=== PATIENT | female | born 1985 | race Caucasian/White ===

== ENCOUNTER 2016-08-02 12:55 | Emergency (ER) | payer OTHER ==
[2016-08-02 13:46] VITALS: BP 117/62
--- NOTE | 2016-08-02 14:08 | UC ---
Upper Extremity HPI - HPI Summary HPI Summary: 30 year old female with complaints of right shoulder pain. States she woke up 2 days ago with anterior right shoulder pain that radiates from shoulder to shoulder bland and tender into top part of her right breast. Denies fall or injury. Limited ROM of right arm due to acute pain. She is taking ibuprofen with minimal relief. Right hand dominant Denies chest pain or difficulty breathing - History of Current Complaint Chief Complaint: UCUpperExtremity Stated Complaint: RIGHT SHOULDER INJURY Time Seen by Provider: 08/02/16 13:49 Hx Obtained From: Patient Hx Last Menstrual Period: 07/27/16 ?: No Onset/Duration: Sudden Onset, Lasting Days - 2, Still Present Severity Initially: Moderate Severity Currently: Moderate Pain Scale Used: 0-10 Numeric - 7 Character: Aching, Throbbing Aggravating Factor(s): Movement, Abduction Alleviating Factor(s): Nothing Associated Signs And Symptoms: Positive: Numbness/Tingling - in certain positions and relieved by change of position. Negative: Swelling, Redness, Bruising, Fever, Weakness Related History: Dominant Hand Right - Risk Factors DVT Risk Factors: Negative Septic Arthritis Risk Factor: Negative Compartment Syndrome Risk Factors: Pain - Allergies/Home Medications Allergies/Adverse Reactions: Allergies Allergy/AdvReac Type Severity Reaction Status Date / Time Tramadol Allergy Tachycardia Verified 08/02/16 13:41 ear drop abx Allergy Flushing Uncoded 08/02/16 13:41 PMH/Surg Hx/FS Hx/Imm Hx Previously Healthy: Yes Endocrine History Of: Denies: Diabetes, Thyroid Disease, Hyperthyroidism, Hypothyroidism, Dyslipidemia Cardiovascular History Of: Denies: Cardiac Disorders, Hypertension, Pacemaker/ICD, Myocardial Infarction , Congestive Heart Failure, Atrial Fibrillation, Deep Vein Thrombosis, Bleeding Disorders Respiratory History Of: Denies: COPD, Asthma, Bronchitis, Pneumonia, Pulmonary Embolism GI/ History Of: Denies: Gastroesophageal Reflux, Ulcer, Gastrointestinal Bleed, Gall Bladder Disease, Kidney Stones, Diverticulitis, Renal Disease, Urosepsis Neurological History Of: Denies: TIA, CVA, Dementia, Seizures, Migraine Psychological History Of: Denies: Anxiety, Depression, Bipolar Disorder, Schizophrenia, Post Traumatic Stress Disorder Cancer History Of: Denies: Lung Cancer, Colorectal Cancer, Breast Cancer, Prostate Cancer, Cervical Cancer Other History Of: Negative For: HIV, Hepatitis B, Hepatitis C - Surgical History Surgical History: Yes Surgery Procedure, Year, and Place: Tubal Ligation, 2007, [facility]. C-Sections, 2007 2013, [facility]. Cholecystectomy, 2007, [facility]. T&A, 2004, [facility]. 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 [employer] Lives: Alone Alcohol Use: Rare Substance Use Type: None Smoking Status (MU): Heavy Every Day Tobacco Smoker Type: Cigarettes Amount Used/How Often: 10 CIGS PER WEEK Length of Time of Smoking/Using Tobacco: 7 Years Have You Smoked in the Last Year: Yes When Did the Patient Quit Smoking/Using Tobacco: 12/27/14 Cessation Counseling: Patient Advised to Stop - she is not interested in quiting - Immunization History Most Recent Influenza Vaccination: 2012 Review of Systems Constitutional: Negative Skin: Negative Eyes: Negative ENT: Negative Respiratory: Negative Cardiovascular: Negative Gastrointestinal: Negative Genitourinary: Negative Motor: Decreased ROM - right arm due to acute pain Musculoskeletal: Arthralgia - right shoulder Neurological: Negative Psychological: Negative All Other Systems Reviewed And Are Negative: Yes Physical Exam Triage Information Reviewed: Yes Appearance: Well-Appearing, Pain Distress - holding right arm close to her side , Obese Vital Signs: Initial Vital Signs Temp 97.6 F 08/02/16 13:42 Pulse 78 08/02/16 13:42 Resp 18 08/02/16 13:42 BP 117/62 08/02/16 13:42 Pulse Ox 100 08/02/16 13:42 Vital Signs Reviewed: Yes Eyes: Positive: Conjunctiva Clear. Negative: Discharge ENT: Positive: Hearing grossly normal. Negative: Nasal congestion Neck: Positive: Supple, Nontender - no midline cervical tenderness, No Lymphadenopathy Respiratory: Positive: Lungs clear, Normal breath sounds Cardiovascular: Positive: RRR, No Murmur Musculoskeletal: Positive: Strength Intact - equal hand sheriff sergeant 5/5, No Edema, ROM Limited @ - right shoulder at 90 degrees abduction due to acute pain. There is no redness, swelling, bruising, or deformity appreciated of the right shoulder. Full passive ROM. Capillary refill less than 2 seconds of right fingers. Good sensation to light touch throughout right arm and hand. Tenderness with palpation and muscle spasm at posterior right shoulder. Pt withdrawaling from exam so it was limited Neurological: Positive: Alert, Muscle Tone Normal Psychological: Positive: Age Appropriate Behavior - pleasant and cooperative Skin: Negative: rashes, breakdown Upper Extremity Course/Dx - Differential Dx/Diagnosis Differential Diagnosis/HQI/PQRI: Contusion, Strain Provider Diagnoses: Right shoulder strain. possible thoracic outlet syndrome Discharge - Discharge Plan Condition: Stable Disposition: HOME Prescriptions: Ibuprofen TAB* [Motrin TAB* 800 MG] 800 mg PO Q6H PRN #20 tab PRN Reason: Pain Patient Education Materials: Shoulder Pain (ED), Thoracic Outlet Syndrome (ED) Referrals: No Primary Care Phys,NOPCP [Primary Care Provider] - [facility] [Outside] (For help obtaining a primary care physician) Amado Peter MD [Medical Doctor] - 5 Days (For evaluation of right shoulder pain)
[2016-08-02] MEDS ORDERED: Ketorolac INJ* 30 MG/ML 1 ML VIAL IM ONE (14:13)
== END 2016-08-02 14:51 | disposition home or self-care (01) ==
LOC: UCCORT 12:55
DX: S46.911A Strain of unspecified muscle, fascia and tendon at shoulder and upper arm level, right arm, initial encounter (principal); X58.XXXA Exposure to other specified factors, initial encounter; Y93.9 Activity, unspecified; Y92.9 Unspecified place or not applicable; Z88.6 Allergy status to analgesic agent; F17.210 Nicotine dependence, cigarettes, 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
CPT/HCPCS: 96372; 99212; G0463; J1885

== ENCOUNTER 2018-08-07 15:38 | Emergency (ER) | payer OTHER ==
--- OUTSIDE RECORDS SUMMARY | 2018-08-07 16:17 | XMS REPORT | Continuity of Care Document ---
:1985 External Reference #:[id number] Author Name Erick Sorto M.D. Address [address] [facility] [address] [place] [address] Care Team Providers Name Role Phone Beni Mata JP Care Team Information Increment Manager Unavailable Payers Type Date Identification Numbers Payment Provider Subscriber Effective: 2017 Policy Number: [id number] [facility] Chanell Wright PayID: [id number] [place] [address] Policy Number: [id number] [employer] Chanell Wright PayID: [id number] [address] [place] [address] Expires: 2017 Policy Number: [id number] [facility] Chanell Wright PayID: [id number] [address] [place] [address] Advance Directives Description No Information Available Problems Date Description Provider Status Onset: 08/13/2016 Morbid obesity Beni MataP Active Onset: 08/13/2016 Tobacco user Beni MataP Active Onset: 08/13/2016 Degeneration of lumbar intervertebral disc Beni MataP Active Onset: 08/13/2016 Refractory migraine with aura Beni MataP Active Family History Date Family Member(s) Problem(s) Comments General Hypercholesterolemia General Heart Disease Father 50 Father No Current Problems Mother 46 Mother No Current Problems Children 2 First Son 2 First Son No Current Problems First Daughter 9 First Daughter No Current Problems Siblings 5 Social History Type Date Description Comments Sex Unknown Marital Status Significant Other 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 F34.1 G25.81 Prozac 07/17/2017 Active Capsules 20mg 90caps 1 by mouth F41.9 Macario, every day Ahmad M., M.D. 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 Betamethasone 04/02/2017 Active Cream 0.05% 45gm apply to L20.9 Macario, Dipropionate affected Ahmad M., area three M.D. times a day as needed Omeprazole 01/15/[address] 40mg 90caps 1 by mouth K30 Macario, every day Ahmad M., M.D. Morphine Sulfate 11/07/2016 Active Tablets ER 30mg 60tabs 1 tab by M54.6 Macario, ER mouth twice Ahmad M., a day M.D. M79.606 M51.37 Oxycodone-Acetaminophen 08/20/2016 Active Tablets 7.5-325mg 60tabs 1 tab M54.6 Macario, by Ahmad mouth M., twice a M.D. day as needed M79.606 M51.37 Ibuprofen 08/20/2016 Active Tablets 800mg 90tabs 1 by mouth M79.606 Macario, Ahmad three times a M., M.D. day with food M54.6 M51.37 Topiramate 08/20/2016 Active Tablets 50mg 60tabs tab one by G43.119 Macario, mouth Ahmad M., twice a M.D. day Trazodone HCL 05/25/2018 - Hx Tablets 300mg 30tabs 1 tab by G47.00 Macario, 05/25/2018 mouth Ahmad M., every M.D. night F34.1 G25.81 Keflex 10/02/2017 - Hx Capsules 500mg 30caps 1 by mouth Macario, 10/11/2017 three times a Ahmad M., day M.D. Trazodone HCL 07/03/2017 - Hx Tablets 100mg 60tabs take 2 G47.00 Macario, 05/25/2018 tablets by Ahmad M., mouth every M.D. evening F34.1 G25.81 Trazodone HCL 06/18/2017 - Hx Tablets 100mg 60tabs 2 tab by G47.00 [facility], Ahmad 07/03/2017 mouth every M., M.D. night F34.1 G25.81 Trazodone HCL 05/21/2017 - Hx Tablets 100mg 30tabs /2-1 tab G47.00 [facility], mad 06/18/2017 by mouth M., M.D. every night F34.1 G25.81 Cephalexin 02/03/2017 - Hx Tablets 500mg 30tabs tab one by B35.1 [facility], 03/06/2017 mouth Ahmad three M., M.D. times a day Pramipexole 02/03/2017 - Hx Tablets 0.125mg 30tabs tab one by G47.00 [facility], Dihydrochloride 05/21/2017 mouth Ahmad every at M., M.D. bedtime Wellbutrin XL 01/15/2017 - Hx Tablets ER 150mg 30tabs 1 by mouth F17.210 [facility], 05/06/2017 24HR every day Ahmad Joyce Condon. Clindamycin HCL 01/07/2017 - Hx Capsules 300mg 20caps tab one by W54.0xx [facility], 01/17/2017 mouth A Ahmad twice a M., M.D. day Chantix 01/01/2017 - Hx Tablets 1mg 60tabs 1 by mouth F17.210 Macario, 01/15/2017 twice a Ahmad day M., M.D. Morphine Sulfate 11/06/2016 - Hx Caps ER 60mg 60caps 1 tab by M54.6 Macario, ER 11/07/2016 24HR mouth Ahmad twice a M., M.D. day M79.606 M51.37 Omeprazole 10/22/2016 - Hx Capsules DR 40mg 90caps 1 by mouth K21.0 Macario, Ahmozayda 01/15/2017 every day Kate Condon K30 Prednisone 10/01/2016 - Hx Tablets 20mg 18tabs 3 tab by M54.6 Iram Sortomozayda 10/13/2016 mouth daily 3 Jarett.Kate days, then 2 tab daily x 3 d , then 1 tab daily 3d M51.37 Meloxicam 08/11/2016 - Hx Tablets 7.5mg 60tabs 1 by mouth M51.36 Macario , [facility] 08/20/2016 twice a day Kate Condon Immunizations CPT Code Status Date Vaccine Lot # [id number] Given 03/29/2018 Flu Vaccine [id number] U-Flu Given 03/20/2017 Influenza,Unspecified Vital Signs Date Vital Result Comment 07/22/2018 9:05am BP Systolic 128 mmHg BP Diastolic 90 mmHg Height 67 inches 5'7" Weight 254.00 lb BMI (Body Mass Index) 39.8 kg/m2 Heart Rate 124 /min Respiratory Rate 16 /min 06/24/2018 11:15am BP Systolic 118 mmHg BP Diastolic 78 mmHg Height 67 inches 5'7" Weight 272.00 lb BMI (Body Mass Index) 42.6 kg/m2 Heart Rate 99 /min Respiratory Rate 18 /min 05/25/2018 10:20am BP Systolic 130 mmHg BP Diastolic 78 mmHg Height 67 inches 5'7" Weight 267.00 lb BMI (Body Mass Index) 41.8 kg/m2 Heart Rate 96 /min Respiratory Rate 16 /min 04/27/2018 10:04am BP Systolic 128 mmHg BP Diastolic 72 mmHg Height 67 inches 5'7" Weight 271.00 lb BMI (Body Mass Index) 42.4 kg/m2 Heart Rate 119 /min Respiratory Rate 16 /min 03/29/2018 10:16am BP Systolic 136 mmHg BP Diastolic 64 mmHg Height 67 inches 5'7" Weight 270.00 lb BMI (Body Mass Index) 42.3 kg/m2 Heart Rate 82 /min Respiratory Rate 16 /min 02/26/2018 3:37pm BP Systolic 130 mmHg BP Diastolic 68 mmHg Height 67 inches 5'7" Weight 272.00 lb BMI (Body Mass Index) 42.6 kg/m2 Heart Rate 113 /min Respiratory Rate 16 /min 01/26/2018 2:16pm BP Systolic 126 mmHg BP Diastolic 70 mmHg Height 67 inches 5'7" Weight 266.00 lb BMI (Body Mass Index) 41.7 kg/m2 Heart Rate 98 /min Respiratory Rate 14 /min 12/28/2017 10:17am BP Systolic 128 mmHg BP Diastolic 84 mmHg Height 67 inches 5'7" Weight 281.00 lb BMI (Body Mass Index) 44.0 kg/m2 Heart Rate 101 /min Respiratory Rate 16 /min 11/27/2017 9:49am BP Systolic 124 mmHg BP Diastolic 68 mmHg Height 67 inches 5'7" Weight 276.00 lb BMI (Body Mass Index) 43.2 kg/m2 Heart Rate 64 /min Respiratory Rate 18 /min 10/30/2017 9:54am BP Systolic 132 mmHg BP Diastolic 64 mmHg Height 67 inches 5'7" Weight 281.00 lb BMI (Body Mass Index) 44.0 kg/m2 Heart Rate 96 /min Respiratory Rate 18 /min 09/29/2017 2:57pm BP Systolic 118 mmHg BP Diastolic 78 mmHg Height 67 inches 5'7" Weight 280.00 lb BMI (Body Mass Index) 43.8 kg/m2 Heart Rate 103 /min Respiratory Rate 18 /min 09/15/2017 2:26pm BP Systolic 142 mmHg BP Diastolic 82 mmHg Height 67 inches 5'7" Weight 284.00 lb BMI (Body Mass Index) 44.5 kg/m2 Heart Rate 105 /min Respiratory Rate 18 /min 08/31/2017 9:43am BP Systolic 128 mmHg BP Diastolic 78 mmHg Height 67 inches 5'7" Weight 276.00 lb BMI (Body Mass Index) 43.2 kg/m2 Heart Rate 107 /min Respiratory Rate 18 /min 08/14/2017 2:44pm BP Systolic 140 mmHg BP Diastolic 70 mmHg Height 67 inches 5'7" Weight 274.00 lb BMI (Body Mass Index) 42.9 kg/m2 Heart Rate 90 /min Respiratory Rate 18 /min 07/31/2017 1:26pm BP Systolic 140 mmHg BP Diastolic 72 mmHg Height 67 inches 5'7" Weight 284.00 lb BMI (Body Mass Index) 44.5 kg/m2 Heart Rate 81 /min Respiratory Rate 18 /min 07/17/2017 3:41pm BP Systolic 126 mmHg BP Diastolic 78 mmHg Height 67 inches 5'7" Weight 283.00 lb BMI (Body Mass Index) 44.3 kg/m2 Heart Rate 108 /min Respiratory Rate 18 /min 07/03/2017 9:12am BP Systolic 126 mmHg BP Diastolic 72 mmHg Height 67 inches 5'7" Weight 279.00 lb BMI (Body Mass Index) 43.7 kg/m2 Heart Rate 85 /min Respiratory Rate 18 /min 06/18/2017 9:29am BP Systolic 128 mmHg BP Diastolic 70 mmHg Height 67 inches 5'7" Weight 286.00 lb BMI (Body Mass Index) 44.8 kg/m2 Heart Rate 112 /min Respiratory Rate 18 /min 06/04/2017 3:37pm BP Systolic 126 mmHg BP Diastolic 68 mmHg Height 67 inches 5'7" Weight 280.00 lb BMI (Body Mass Index) 43.8 kg/m2 Heart Rate 93 /min Respiratory Rate 18 /min 05/21/2017 9:46am BP Systolic 130 mmHg BP Diastolic 72 mmHg Height 67 inches 5'7" Weight 282.00 lb BMI (Body Mass Index) 44.2 kg/m2 Heart Rate 102 /min Respiratory Rate 18 /min 05/05/2017 10:10am BP Systolic 126 mmHg BP Diastolic 72 mmHg Height 67 inches 5'7" Weight 272.00 lb BMI (Body Mass Index) 42.6 kg/m2 Heart Rate 119 /min Respiratory Rate 18 /min 04/21/2017 9:16am BP Systolic 126 mmHg BP Diastolic 62 mmHg Height 67 inches 5'7" Weight 276.00 lb BMI (Body Mass Index) 43.2 kg/m2 Heart Rate 81 /min Respiratory Rate 16 /min 04/02/2017 9:47am BP Systolic 130 mmHg BP Diastolic 78 mmHg Height 67 inches 5'7" Weight 283.00 lb BMI (Body Mass Index) 44.3 kg/m2 Heart Rate 78 /min Respiratory Rate 16 /min 03/20/2017 9:29am BP Systolic 118 mmHg BP Diastolic 70 mmHg Height 67 inches 5'7" Weight 279.00 lb BMI (Body Mass Index) 43.7 kg/m2 Heart Rate 87 /min Respiratory Rate 18 /min 03/06/2017 10:23am BP Systolic 132 mmHg BP Diastolic 78 mmHg Height 67 inches 5'7" Weight 278.00 lb BMI (Body Mass Index) 43.5 kg/m2 Heart Rate 86 /min Respiratory Rate 18 /min 02/19/2017 2:19pm BP Systolic 138 mmHg BP Diastolic 68 mmHg Height 67 inches 5'7" Weight 282.00 lb BMI (Body Mass Index) 44.2 kg/m2 Heart Rate 100 /min Respiratory Rate 16 /min 02/03/2017 11:04am BP Systolic 138 mmHg BP Diastolic 74 mmHg Height 67 inches 5'7" Weight 280.00 lb BMI (Body Mass Index) 43.8 kg/m2 Heart Rate 86 /min Respiratory Rate 16 /min 01/22/2017 2:20pm BP Systolic 138 mmHg BP Diastolic 78 mmHg Height 67 inches 5'7" Weight 282.00 lb BMI (Body Mass Index) 44.2 kg/m2 Heart Rate 98 /min Respiratory Rate 16 /min 01/15/2017 10:27am BP Systolic 130 mmHg BP Diastolic 68 mmHg Height 67 inches 5'7" Weight 271.00 lb BMI (Body Mass Index) 42.4 kg/m2 Heart Rate 87 /min Respiratory Rate 16 /min 01/01/2017 3:11pm BP Systolic 128 mmHg BP Diastolic 70 mmHg Height 67 inches 5'7" Weight 271.00 lb BMI (Body Mass Index) 42.4 kg/m2 Heart Rate 99 /min Respiratory Rate 16 /min 12/05/2016 4:13pm BP Systolic 146 mmHg BP Diastolic 78 mmHg Height 67 inches 5'7" Weight 272.00 lb BMI (Body Mass Index) 42.6 kg/m2 Heart Rate 108 /min Respiratory Rate 16 /min 11/06/2016 3:28pm BP Systolic 138 mmHg BP Diastolic 78 mmHg Height 67 inches 5'7" Weight 280.00 lb BMI (Body Mass Index) 43.8 kg/m2 Heart Rate 102 /min Respiratory Rate 16 /min 10/22/2016 9:22am BP Systolic 132 mmHg BP Diastolic 80 mmHg Height 67 inches 5'7" Weight 278.00 lb BMI (Body Mass Index) 43.5 kg/m2 Heart Rate 77 /min Respiratory Rate 16 /min 10/01/2016 9:09am BP Systolic 126 mmHg BP Diastolic 78 mmHg Height 67 inches 5'7" Weight 289.00 lb BMI (Body Mass Index) 45.3 kg/m2 Heart Rate 104 /min Respiratory Rate 18 /min 09/22/2016 9:25am BP Systolic 128 mmHg BP Diastolic 72 mmHg Height 67 inches 5'7" Weight 287.00 lb BMI (Body Mass Index) 44.9 kg/m2 Heart Rate 88 /min Respiratory Rate 18 /min 08/20/2016 10:58am BP Systolic 128 mmHg BP Diastolic 82 mmHg Height 67 inches 5'7" Weight 297.00 lb BMI (Body Mass Index) 46.5 kg/m2 Heart Rate 119 /min Respiratory Rate 18 /min 08/11/2016 3:35pm BP Systolic 158 mmHg BP Diastolic 88 mmHg Height 67 inches 5'7" Weight 290.00 lb BMI (Body Mass Index) 45.4 kg/m2 Heart Rate 102 /min Respiratory Rate 18 /min Results Test Date Facility Test Result H/L Range Note Ua RFX Micro & Culture II 07/09/2018 [facility] Urine Color YELLOW Yellow 1 Urine Clarity SL CLOUDY Clear Urine Glucose - Dipstick NEGATIVE mg/dL Negative Urine Bilirubin - Dipstick NEGATIVE Negative Urine Ketone NEGATIVE mg/dL Negative Urine Specific [place] 1.020 N 1.010-1.030 Urine Blood NEGATIVE Negative Urine PH 6.0 Low 6.5-7.5 Urine Protein - Dipstick NEGATIVE mg/dL Negative Urine Urobilinogen - Dipstick 0.2 E.U./dL N 0.2-1.0 Urine Nitrite - Dipstick NEGATIVE Negative Urine Leuk Esterase NEGATIVE Negative Source: URINE, CLEAN CAT <SEE NOTE> 2 Drugs Of Abuse-Urine Screen 07/09/2018 [facility] Amphetamines (Urine) Negative 7 Barbiturates (Urine) Negative Benzodiazepines (Urine) Negative Cannabinoids (Urine) Negative Cocaine Metabolite (Urine) Negative Methadone (Urine) Negative Opiates (Urine) POSITIVE Abnormal Urine Cutoffs * 3 Laboratory test 07/09/2018 [facility] Ethyl Alcohol 4.0 mg/dL finding CBC Auto Diff 05/19/2018 [facility] White Blood 10.1 10^3/uL N 3.5- 10.8 Count Red Blood Count 4.26 10^6/uL N 4.00-5.40 Hemoglobin 13.5 g/dL N 12.0-16.0 Hematocrit 41 % N 35-47 Mean Corpuscular Volume 96 fL N 80-97 Mean Corpuscular Hemoglobin 32 pg High 27-31 Mean Corpuscular HGB Conc 33 g/dL N 31-36 Red Cell Distribution Width 13 % N 10.5-15 Platelet Count 242 10^3/uL N 150-450 Mean Platelet Volume 8.9 fL N 7.4-10.4 Abs Neutrophils 6.4 10^3/uL N 1.5-7.7 Abs Lymphocytes 3.0 10^3/uL N 1.0-4.8 Abs Monocytes 0.5 10^3/uL N 0-0.8 Abs Eosinophils 0.2 10^3/uL N 0-0.6 Abs Basophils 0.1 10^3/uL N 0-0.2 Abs Nucleated RBC 0 10^3/uL Granulocyte % 63.3 % N 38-83 Lymphocyte % 29.6 % N 25-47 Monocyte % 4.6 % N 0-7 Eosinophil % 1.6 % N 0-6 Basophil % 0.9 % N 0-2 Nucleated Red Blood Cells % 0 Comp Metabolic Panel 05/19/2018 [facility] Sodium 139 mmol/L N 135- 145 Potassium 3.8 mmol/L N 3.5-5.0 Chloride 105 mmol/L N 101-111 Co2 Carbon Dioxide 28 mmol/L N 22-32 Anion Gap 6 mmol/L N 2-11 Glucose 102 mg/dL High 70-100 Blood Urea Nitrogen 11 mg/dL N 6-24 Creatinine 0.69 mg/dL N 0.51-0.95 BUN/Creatinine Ratio 15.9 N 8-20 Calcium 9.5 mg/dL N 8.6-10.3 Total Protein 7.1 g/dL N 6.4-8.9 Albumin 4.5 g/dL N 3.2-5.2 Globulin 2.6 g/dL N 2-4 Albumin/Globulin Ratio 1.7 N 1-3 Total Bilirubin 0.60 mg/dL N 0.2-1.0 Alkaline Phosphatase 63 U/L N 34-104 Alt 29 U/L N 7-52 Ast 22 U/L N 13-39 Egfr Non- 99.9 >60 Egfr 120.9 >60 4 Laboratory test 05/19/2018 [facility] Troponin-I (TnI) 0.00 ng/mL < 0.04 finding HCG < 0.60 mIU/mL 5 D Dimer Quantitative < 200 ng/mL N Less Than 230 6 Ethyl Glucuronide 01/26/2018 [facility] Ethyl Glucuronide Negative ng/mL N 500 PDF SEE IMAGE Laboratory test finding 01/26/2018 [facility] Tramadol Negative ng/mL N 5 7 Gabapentin Negative ng/mL N 100 8 Trazodone Negative Inconsi <SEE NOTE> ng/mL Abnormal 20 9 Topiramate Negative Inconsi <SEE NOTE> ng/mL Abnormal 100 10 Urine DRG SCR 01/26/2018 [facility] Amphetamine NEGATIVE N 1000 (12PNL-PM) Barbiturate NEGATIVE N 200 Benzodiazepine NEGATIVE N 200 Buprenorphine NEGATIVE N 15 Cannabinoid NEGATIVE N 50 Cocaine NEGATIVE N 300 Methadone NEGATIVE N 300 Opiate POSITIVE Abnormal 300 Oxycodone POSITIVE Abnormal 300 Phencyclidine NEGATIVE N 25 11 Cocaine Panel By 01/26/2018 [facility] Benzoylecgonine Negative ng/mL N 50 12 LC/MS/MS (Cocaine) Amphetamine Panel 01/26/2018 [facility] Amphetamine Negative ng/ mL N 50 By LC/MS/MS Methamphetamine Negative ng/mL N 50 Mdma (Ecstasy) Negative ng/mL N 50 Mda Negative ng/ml N 50 Mdea Negative ng/mL N 50 13 Specimen Validity 01/26/2018 [facility] Creatinine, Urine 44 mg/ dL N >20 Panel Color YELLOW N Yellow pH 6.2 N 5.0-8.0 Specific [place] 1.016 N 1.001-1.035 14 Opiates Panel By 01/26/2018 [facility] 6-Onur (Heroin Negative ng/ mL N 5 LC/MS/MS Metabolite) Codeine Negative ng/mL N 50 Hydrocodone Negative ng/mL N 50 Hydromorphone Negative Consist <SEE NOTE> ng/mL N 50 15 Morphine 168 Positive Con <SEE NOTE> ng/mL N 50 16 Norhydrocodone Negative ng/mL N 50 Noroxycodone 3528 Positive Co <SEE NOTE> ng/mL N 50 17 Noroxymorphone 488 Positive Con <SEE NOTE> ng/mL N 50 18 Oxycodone 3312 Positive Co <SEE NOTE> ng/mL N 50 19 Oxymorphone Positive >5000 C <SEE NOTE> ng/mL N 50 20 Methadone Panel By 01/26/2018 [facility] Eddp Negative ng/mL N 10 LC/MS/MS Methadone Negative ng/mL N 10 21 Buprenorphine Panel By 01/26/2018 [facility] Buprenorphine Negative ng/mL N 5 LC/MS/MS Naloxone Negative ng/mL N 10 Norbuprenorphine Negative ng/mL N 5 22 Benzodiazepines 01/26/2018 [facility] 2-Hydroxyethylflurazepam Negative N 10 Panel By LC/MS/MS ng/mL 7-Aminoclonazepam Negative ng/mL N 10 Alprazolam Negative ng/mL N 10 Chlordiazepoxide Negative ng/mL N 10 Clonazepam Negative ng/mL N 10 Desalkylflurazepam Negative ng/mL N 10 Diazepam Negative ng/mL N 10 Lorazepam Negative ng/mL N 10 Midazolam Negative ng/ml N 10 Nordiazepam Negative ng/mL N 10 Alpha-hydroxyalprazolam Negative ng/mL N 10 Alpha-Hydroxymidazolam Negative ng/mL N 10 Alpha-Hydroxytriazolam Negative ng/mL N 10 Oxazepam Negative ng/mL N 10 Prazepam Negative ng/mL N 10 Temazepam Negative ng/mL N 10 23 Barbiturates Panel By 01/26/2018 [facility] Butalbital Negative ng/mL N 100 LC/MS/MS Pentobarbital Negative ng/mL N 100 Phenobarbital Negative ng/mL N 100 Secobarbital Negative ng/mL N 100 24 Antidepressants Panel 01/26/2018 [facility] Amitriptyline Negative ng/mL N 20 By LC/MS/MS Clomipramine Negative ng/mL N 20 Desipramine Negative ng/mL N 20 Doxepin Negative ng/mL N 20 Fluoxetine Negative Inconsi <SEE NOTE> ng/mL Abnormal 20 25 Imipramine Negative ng/mL N 20 Norclomipramine Negative ng/mL N 20 Nordoxepin Negative ng/mL N 20 Nortriptyline Negative ng/mL N 20 Sertraline Negative ng/mL N 20 Trimipramine Negative ng/mL N 20 26 Urine Drug 01/26/2018 [facility] IBO-Pojgl-6-Cooh Negative N 5 27 [facility] ng/mL Laboratory 11/19/2017 [facility] HCG,Serum NEGATIVE (Negative 28, test finding (Qualitative) ) 29 Ua RFX Micro & 11/19/2017 [facility] Urine Color YELLOW Yellow Culture II Urine Clarity SL CLOUDY Clear Urine Glucose - Dipstick NEGATIVE mg/dL Negative Urine Bilirubin - Dipstick NEGATIVE Negative Urine Ketone NEGATIVE mg/dL Negative Urine Specific [place] <=1.005 Low 1.010-1.030 Urine Blood TRACE Negative Urine PH 5.5 Low 6.5-7.5 Urine Protein - Dipstick NEGATIVE mg/dL Negative Urine Urobilinogen - Dipstick 0.2 E.U./dL N 0.2-1.0 Urine Nitrite - Dipstick NEGATIVE Negative Urine Leuk Esterase NEGATIVE Negative Source: URINE, CLEAN CAT <SEE NOTE> 30 Blood Culture 09/08/2017 [facility] Blood Culture NO GROWTH: FINAL 31, 32 Aerobic <SEE NOTE> Blood Culture Anaerobic NO GROWTH: FINAL <SEE NOTE> 33 Slide Review 09/08/2017 [facility] Slide Review (SEE NOTE) 34 CBS W/Automated 09/08/2017 [facility] White Blood Count 17.3 K/uL High 3.1- 10.7 Diff Red Blood Count 4.21 M/uL N 3.90-5.40 Hemoglobin 13.6 gm/dL N 11.6-15.8 Hematocrit 40.0 % N 36.0-46.1 Mean Cell Volume 95.0 fl N 80.9-99.0 Mean Corpuscular HGB 32.3 pg N 25.9-32.7 Mean Corpuscular HGB Conc 34.0 g/dL N 30.8-34.3 Platelet Count 242 K/uL N 155-360 Red Cell Distri Width SD 42.6 fl N 3-47 Red Cell Distri Width %CV 12.7 % N 11.7-14.4 Mean Platelet Volume 11.1 fL N 8.9-12.4 Neut% 74.5 % High 40.4-72.8 Lymph % 19.4 % Low 20.0-42.0 [place] % 5.5 % N 4.3-13.2 Eo% 0.3 % N 0.0-6.6 Bas% 0.3 % N 0.0-1.1 Neut# 12.86 K/uL High 1.8-7.0 Lymph # 3.34 K/uL N 1.0-4.0 [place] # 0.95 K/uL High 0.3-0.9 Eos # 0.05 K/uL N 0.0-0.5 Baso # 0.05 K/uL N 0.0-0.1 Lactic Acid 09/08/2017 [facility] Lactic Acid 2.1 mmol/L High 0.4-1.9 Lab Reflex >2.0 for Sepsis? Y Laboratory test finding 09/08/2017 [facility] Lipase 112 U/L N 56-289 HCG,Serum (Qualitative) NEGATIVE (Negative) 35 Comprehensive Metabolic Panel 09/08/2017 [facility] Glucose 101 mg/dL N 74- 106 BUN 9 mg/dL N 7-18 Creatinine 0.7 mg/dL N 0.6-1.3 Glom Filtration Rate, Estimate >60 mL/min >60 If >60 mL/min >60 36 BUN/Creat 12.8 ratio Sodium 141 mmol/L N 136-145 Potassium 3.7 mmol/L N 3.5-5.1 Chloride 105 mmol/L N 98-107 Carbon Dioxide 27 mmol/L N 21-32 Anion Gap 9 mEq/L N 8-16 Calcium 9.4 mg/dL N 8.5-10.1 Total Protein 7.8 g/dL N 6.4-8.2 Albumin 4.1 g/dL N 3.4-5.0 Globulin 3.7 g/dL N 1.9-4.3 Alb/Glob 1.1 ratio Bilirubin,Total 0.5 mg/dL N 0.2-1.0 Sgot/Ast 44 U/L High 15-37 SGPT/Alt 58 U/L N 12-78 Alkaline Phosphatase 77 U/L N 45-117 Blood Culture 09/08/2017 [facility] Blood Culture Aerobic NO GROWTH: FINAL < SEE 37 NOTE> Blood Culture Anaerobic NO GROWTH: FINAL <SEE NOTE> 38 Ua RFX Micro & Culture II 09/08/2017 [facility] Urine Color YELLOW Yellow Urine Clarity CLEAR Clear Urine Glucose - Dipstick NEGATIVE mg/dL Negative Urine Bilirubin - Dipstick NEGATIVE Negative Urine Ketone NEGATIVE mg/dL Negative Urine Specific [place] 1.015 N 1.010-1.030 Urine Blood NEGATIVE Negative Urine PH 6.0 Low 6.5-7.5 Urine Protein - Dipstick NEGATIVE mg/dL Negative Urine Urobilinogen - Dipstick 0.2 E.U./dL N 0.2-1.0 Urine Nitrite - Dipstick NEGATIVE Negative Urine Leuk Esterase NEGATIVE Negative Source: URINE, CLEAN CAT <SEE NOTE> 39 Influenza A/B 09/08/2017 [facility] Influenza A Antigen Negative (Negative ) Antigen Influenza B Antigen Negative (Negative) 40 Laboratory test 07/31/2017 [facility] Hemoglobin A1c 5.2 % N 4.0-5.6 41 finding (Glyco HGB) Jd Rizvi 07/31/2017 [facility] Ebv Capsid Ag Positive Negative Comprehensive IgG Ab Ebv Capsid Ag IgM Ab Negative Negative Jd-Rizvi Nuclear Antigen Positive Negative Jd-Rizvi Virus Interp See Comment 42 Laboratory test 07/31/2017 [facility] Lyme Disease Negative Negative 43 finding Serology Rheumatoid Factor <15 IU/mL <15 44 Connective Tissue Panel 07/31/2017 [facility] Anti-Nuclear Antibody 0.4 U 45 Cyclic Citrullinated Peptide <15.6 U 46 Interpretation See Comment 47 Laboratory test 07/31/2017 [facility] TSH (Thyroid 0.65 mcIU/mL N 0.34-5.60 48 finding Stim Horm) Free T4 (Free Thyroxine) 0.95 ng/dL N 0.61-1.12 49 Erythrocyte Sed Rate 15 mm/Hr High 0-14 50 CBC Auto Diff 07/31/2017 [facility] White Blood Count 9.2 10^3/uL N 3.5-10.8 Red Blood Count 3.86 10^6/uL Low 4.0-5.4 Hemoglobin 12.5 g/dL N 12.0-16.0 Hematocrit 37 % N 35-47 Mean Corpuscular Volume 95 fL N 80-97 Mean Corpuscular Hemoglobin 33 pg High 27-31 Mean Corpuscular HGB Conc 34 g/dL N 31-36 Red Cell Distribution Width 13 % N 10.5-15 Platelet Count 254 10^3/uL N 150-450 Mean Platelet Volume 10 um3 N 7.4-10.4 Abs Neutrophils 5.7 10^3/uL N 1.5-7.7 Abs Lymphocytes 2.8 10^3/uL N 1.0-4.8 Abs Monocytes 0.4 10^3/uL N 0-0.8 Abs Eosinophils 0.2 10^3/uL N 0-0.6 Abs Basophils 0.1 10^3/uL N 0-0.2 Abs Nucleated RBC 0 10^3/uL Granulocyte % 61.7 % N 38-83 Lymphocyte % 30.5 % N 25-47 Monocyte % 3.9 % N 1-9 Eosinophil % 2.6 % N 0-6 Basophil % 1.3 % N 0-2 Nucleated Red Blood Cells % 0.1 Comp Metabolic Panel 07/31/2017 [facility] Sodium 136 mmol/L N 133- 145 Potassium 4.0 mmol/L N 3.5-5.0 Chloride 103 mmol/L N 101-111 Co2 Carbon Dioxide 26 mmol/L N 22-32 Anion Gap 7 mmol/L N 2-11 Glucose 107 mg/dL High 70-100 Blood Urea Nitrogen 8 mg/dL N 6-24 Creatinine 0.55 mg/dL N 0.51-0.95 BUN/Creatinine Ratio 14.5 N 8-20 Calcium 9.8 mg/dL N 8.6-10.3 Total Protein 6.9 g/dL N 6.4-8.9 Albumin 4.3 g/dL N 3.2-5.2 Globulin 2.6 g/dL N 2-4 Albumin/Globulin Ratio 1.7 N 1-3 Total Bilirubin 0.40 mg/dL N 0.2-1.0 Alkaline Phosphatase 71 U/L N 34-104 Alt 24 U/L N 7-52 Ast 19 U/L N 13-39 Egfr Non- 130.7 >60 Egfr 168.1 >60 51 Comprehensive Metabolic Panel 02/23/2017 [facility] Glucose 99 mg/dL N 74- 106 52 BUN 8 mg/dL N 7-18 Creatinine 0.6 mg/dL N 0.6-1.3 Glom Filtration Rate, Estimate >60 mL/min >60 If >60 mL/min >60 53 BUN/Creat 13.3 ratio Sodium 138 mmol/L N 136-145 Potassium 3.8 mmol/L N 3.5-5.1 Chloride 105 mmol/L N 98-107 Carbon Dioxide 27 mmol/L N 21-32 Anion Gap 6 mEq/L Low 8-16 Calcium 9.1 mg/dL N 8.5-10.1 Total Protein 7.6 g/dL N 6.4-8.2 Albumin 3.6 g/dL N 3.4-5.0 Globulin 4.0 g/dL N 1.9-4.3 Alb/Glob 0.9 ratio Bilirubin,Total 0.4 mg/dL N 0.2-1.0 Sgot/Ast 47 U/L High 15-37 SGPT/Alt 64 U/L N 12-78 Alkaline Phosphatase 79 U/L N 45-117 Laboratory test finding 02/23/2017 [place] CK 179 U/L N 26-192 Troponin-I 0.016 ng/mL 54 Thyroid Stim Hormone 0.26 uIU/mL Low 0.30-4.20 HCG,Serum (Qualitative) NEGATIVE (Negative) CBS W/Automated Diff 02/23/2017 [place] White Blood Count 12.0 K/uL High 3.1-10.7 Red Blood Count 3.93 M/uL N 3.90-5.40 Hemoglobin 12.9 gm/dL N 11.6-15.8 Hematocrit 37.8 % N 36.0-46.1 Mean Cell Volume 96.2 fl N 80.9-99.0 Mean Corpuscular HGB 32.8 pg High 25.9-32.7 Mean Corpuscular HGB Conc 34.1 g/dL N 30.8-34.3 Platelet Count 241 K/uL N 150-400 Red Cell Distri Width SD 43.1 fl N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 Dysthymic disorder F41.9 Anxiety disorder, unspecified B35.1 Tinea unguium M79.641 Pain in right hand N92.0 Excessive and frequent menstruation with regular cycle E66.01 Morbid (severe) obesity due to excess calories M71.38 Other bursal cyst, other site Z79.891 nursing home (current) use of opiate analgesic H52.13 Myopia, bilateral Office Visit 03/29/2018 10:30a Erick Em 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, lumbosacral region R73.01 Impaired fasting glucose L20.9 Atopic dermatitis, unspecified J30.9 Allergic rhinitis, unspecified M54.17 Radiculopathy, lumbosacral region M79.606 Pain in leg, unspecified G25.81 Restless legs syndrome M54.6 Pain in thoracic spine K21.0 Gastro-esophageal reflux disease with esophagitis K30 Functional dyspepsia F17.210 Nicotine dependence, cigarettes, 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 Z68.41 Body mass index (BMI) 40.0-44.9, adult G43.119 Migraine with aura, intractable, without status migrainosus R53.83 Other fatigue G47.00 Insomnia, unspecified F34.1 Dysthymic disorder F41.9 Anxiety disorder, unspecified B35.1 Tinea unguium M79.641 Pain in right hand N92.0 Excessive and frequent menstruation with regular cycle E66.01 Morbid (severe) obesity due to excess calories M71.38 Other bursal cyst, other site Z79.891 nursing home (current) use of opiate analgesic Z00.01 Encounter for general adult medical exam w abnormal findings H52.13 Myopia, bilateral Z23 Encounter for immunization Office Visit 02/26/2018 3:15p Erick Em, L20.9 Atopic dermatitis, M.D. unspecified J30.9 Allergic rhinitis, unspecified R73.01 Impaired fasting glucose M51.37 Other intervertebral disc degeneration, lumbosacral region M54.17 Radiculopathy, lumbosacral region M79.606 Pain in leg, unspecified G25.81 Restless legs syndrome M54.6 Pain in thoracic spine K21.0 Gastro-esophageal reflux disease with esophagitis K30 Functional dyspepsia F17.210 Nicotine dependence, cigarettes, 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 G43.119 Migraine with aura, intractable, without status migrainosus R53.83 Other fatigue G47.00 Insomnia, unspecified F34.1 Dysthymic disorder F41.9 Anxiety disorder, unspecified B35.1 Tinea unguium M79.641 Pain in right hand N92.0 Excessive and frequent menstruation with regular cycle E66.01 Morbid (severe) obesity due to excess calories M71.38 Other bursal cyst, other site Z79.891 nursing home (current) use of opiate analgesic Office Visit 01/26/2018 2:15p [facility] Erick Sorto, R53.83 Other fatigue M.D. G47.00 Insomnia, unspecified F34.1 Dysthymic disorder F41.9 Anxiety disorder, unspecified B35.1 Tinea unguium M79.641 Pain in right hand N92.0 Excessive and frequent menstruation with regular cycle J30.9 Allergic rhinitis, unspecified L20.9 Atopic dermatitis, unspecified R73.01 Impaired fasting glucose G43.119 Migraine with aura, intractable, without status migrainosus E66.01 Morbid (severe) obesity due to excess calories K21.0 Gastro-esophageal reflux disease with esophagitis F17.210 Nicotine dependence, cigarettes, 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 K30 Functional dyspepsia M54.6 Pain in thoracic spine G25.81 Restless legs syndrome M54.17 Radiculopathy, lumbosacral region M79.606 Pain in leg, unspecified M51.37 Other intervertebral disc degeneration, lumbosacral region M71.38 Other bursal cyst, other site 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 Office Visit 12/28/2017 10:45a [facility] Erick Sorto R53.83 Other fatigue M.DBryce G47.00 Insomnia, unspecified F34.1 Dysthymic disorder F41.9 Anxiety disorder, unspecified B35.1 Tinea unguium M79.641 Pain in right hand N92.0 Excessive and frequent menstruation with regular cycle Z79.891 nursing home (current) use of opiate analgesic J30.9 Allergic rhinitis, unspecified L20.9 Atopic dermatitis, unspecified R73.01 Impaired fasting glucose G43.119 Migraine with aura, intractable, without status migrainosus E66.01 Morbid (severe) obesity due to excess calories K21.0 Gastro-esophageal reflux disease with esophagitis F17.210 Nicotine dependence, cigarettes, 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 K30 Functional dyspepsia M54.6 Pain in thoracic spine G25.81 Restless legs syndrome M54.17 Radiculopathy, lumbosacral region M79.606 Pain in leg, unspecified M51.37 Other intervertebral disc degeneration, lumbosacral region M71.38 Other bursal cyst, other site Office Visit 11/27/2017 9:45a [facility] Erick Sorto M51.37 Other intervertebral Kate Condon disc degeneration, lumbosacral region M79.606 Pain in leg, unspecified M54.17 Radiculopathy, lumbosacral region G25.81 Restless legs syndrome M54.6 Pain in thoracic spine K30 Functional dyspepsia F17.210 Nicotine dependence, cigarettes, 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 K21.0 Gastro-esophageal reflux disease with esophagitis E66.01 Morbid (severe) obesity due to excess calories G43.119 Migraine with aura, intractable, without status migrainosus R73.01 Impaired fasting glucose L20.9 Atopic dermatitis, unspecified J30.9 Allergic rhinitis, unspecified Z79.891 nursing home (current) use of opiate analgesic N92.0 Excessive and frequent menstruation with regular cycle M79.641 Pain in right hand B35.1 Tinea unguium F41.9 Anxiety disorder, unspecified F34.1 Dysthymic disorder G47.00 Insomnia, unspecified R53.83 Other fatigue H92.03 Otalgia, bilateral Office Visit 10/30/2017 9:45a [facility] Erick Sorto M51.37 Other intervertebral Kate Condon disc degeneration, lumbosacral region M79.606 Pain in leg, unspecified M54.17 Radiculopathy, lumbosacral region G25.81 Restless legs syndrome M54.6 Pain in thoracic spine K30 Functional dyspepsia F17.210 Nicotine dependence, cigarettes, 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 K21.0 Gastro-esophageal reflux disease with esophagitis E66.01 Morbid (severe) obesity due to excess calories G43.119 Migraine with aura, intractable, without status migrainosus R73.01 Impaired fasting glucose L20.9 Atopic dermatitis, unspecified J30.9 Allergic rhinitis, unspecified Z79.891 nursing home (current) use of opiate analgesic N92.0 Excessive and frequent menstruation with regular cycle M79.641 Pain in right hand B35.1 Tinea unguium F41.9 Anxiety disorder, unspecified F34.1 Dysthymic disorder G47.00 Insomnia, unspecified R53.83 Other fatigue S60.511A Abrasion of right hand, initial encounter Office Visit 09/29/2017 2:45p [facility] Erick Sorto M51.37 Other intervertebral Kate Condon disc degeneration, lumbosacral region M79.606 Pain in leg, unspecified M54.17 Radiculopathy, lumbosacral region G25.81 Restless legs syndrome M54.6 Pain in thoracic spine K30 Functional dyspepsia F17.210 Nicotine dependence, cigarettes, 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 K21.0 Gastro-esophageal reflux disease with esophagitis E66.01 Morbid (severe) obesity due to excess calories G43.119 Migraine with aura, intractable, without status migrainosus R73.01 Impaired fasting glucose L20.9 Atopic dermatitis, unspecified J30.9 Allergic rhinitis, unspecified 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 disc degeneration, lumbosacral region M79.606 Pain in leg, unspecified M54.17 Radiculopathy, lumbosacral region G25.81 Restless legs syndrome M54.6 Pain in thoracic spine K30 Functional dyspepsia F17.210 Nicotine dependence, cigarettes, 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 K21.0 Gastro-esophageal reflux disease with esophagitis E66.01 Morbid (severe) obesity due to excess calories G43.119 Migraine with aura, intractable, without status migrainosus R73.01 Impaired fasting glucose L20.9 Atopic dermatitis, unspecified J30.9 Allergic rhinitis, unspecified Z79.891 nursing home (current) use of opiate analgesic N92.0 Excessive and frequent menstruation with regular cycle M79.641 Pain in right hand B35.1 Tinea unguium F41.9 Anxiety disorder, unspecified F34.1 Dysthymic disorder G47.00 Insomnia, unspecified R53.83 Other fatigue Office Visit 08/31/2017 9:45a [facility] Erick Sorto M51.37 Other intervertebral M., MBryceD. 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 disc degeneration, lumbosacral region M79.606 Pain in leg, unspecified M54.17 Radiculopathy, lumbosacral region G25.81 Restless legs syndrome M54.6 Pain in thoracic spine K30 Functional dyspepsia F17.210 Nicotine dependence, cigarettes, 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 K21.0 Gastro-esophageal reflux disease with esophagitis E66.01 Morbid (severe) obesity due to excess calories G43.119 Migraine with aura, intractable, without status migrainosus R73.01 Impaired fasting glucose L20.9 Atopic dermatitis, unspecified J30.9 Allergic rhinitis, unspecified Z79.891 nursing home (current) use of opiate analgesic N92.0 Excessive and frequent menstruation with regular cycle M79.641 Pain in right hand B35.1 Tinea unguium F41.9 Anxiety disorder, unspecified F34.1 Dysthymic disorder G47.00 Insomnia, unspecified L03.221 Cellulitis of neck R59.0 Localized enlarged lymph nodes R53.83 Other fatigue Office Visit 07/17/2017 4:00p [facility] Erick Sorto M51.37 Other intervertebral M., M.D. 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 disc degeneration, lumbosacral region M79.606 Pain in leg, unspecified M54.17 Radiculopathy, lumbosacral region G25.81 Restless legs syndrome M54.6 Pain in thoracic spine K30 Functional dyspepsia F17.210 Nicotine dependence, cigarettes, 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 K21.0 Gastro-esophageal reflux disease with esophagitis E66.01 Morbid (severe) obesity due to excess calories G43.119 Migraine with aura, intractable, without status migrainosus R73.01 Impaired fasting glucose L20.9 Atopic dermatitis, unspecified J30.9 Allergic rhinitis, unspecified Z79.891 nursing home (current) use of opiate analgesic N92.0 Excessive and frequent menstruation with regular cycle M79.641 Pain in right hand B35.1 Tinea unguium F41.9 Anxiety disorder, unspecified F34.1 Dysthymic disorder G47.00 Insomnia, unspecified Office Visit 06/04/2017 3:45p [facility] Macario, Tashazayda M51.37 Other intervertebral M., M.D. 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 disc degeneration, lumbosacral region M79.606 Pain in leg, unspecified M54.17 Radiculopathy, lumbosacral region G25.81 Restless legs syndrome M54.6 Pain in thoracic spine K30 Functional dyspepsia F17.210 Nicotine dependence, cigarettes, 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 K21.0 Gastro-esophageal reflux disease with esophagitis E66.01 Morbid (severe) obesity due to excess calories G43.119 Migraine with aura, intractable, without status migrainosus R73.01 Impaired fasting glucose L20.9 Atopic dermatitis, unspecified J30.9 Allergic rhinitis, unspecified Z79.891 nursing home (current) use of opiate analgesic N92.0 Excessive and frequent menstruation with regular cycle M79.641 Pain in right hand B35.1 Tinea unguium [facility]vertebral M., M.D. disc degeneration, lumbosacral region M79.606 Pain in leg, unspecified M54.17 Radiculopathy, lumbosacral region G25.81 Restless legs syndrome M54.6 Pain in thoracic spine K30 Functional dyspepsia F17.210 Nicotine dependence, cigarettes, 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 K21.0 Gastro-esophageal reflux disease with esophagitis E66.01 Morbid (severe) obesity due to excess calories G43.119 Migraine with aura, intractable, without status migrainosus R73.01 Impaired fasting glucose L20.9 Atopic dermatitis, unspecified J30.9 Allergic rhinitis, unspecified Z79.891 nursing home (current) use of opiate analgesic N92.0 Excessive and frequent menstruation with regular cycle M79.641 Pain in right hand B35.1 Tinea unguium Office Visit 04/02/2017 9:45a [facility] MacarioErick morse M51.37 Other intervertebral M., M.D. disc degeneration, lumbosacral region M79.606 Pain in leg, unspecified M54.17 Radiculopathy, lumbosacral region G25.81 Restless legs syndrome M54.6 Pain in thoracic spine K30 Functional dyspepsia F17.210 Nicotine dependence, cigarettes, 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 K21.0 Gastro-esophageal reflux disease with esophagitis E66.01 Morbid (severe) obesity due to excess calories G43.119 Migraine with aura, intractable, without status migrainosus R73.01 Impaired fasting glucose L20.9 Atopic dermatitis, unspecified J30.9 Allergic rhinitis, unspecified Z79.891 nursing home (current) use of opiate analgesic N92.0 Excessive and frequent menstruation with regular cycle M79.641 Pain in right hand B35.1 Tinea unguium Office Visit 03/20/2017 9:15a [facility] MacarioErick M51.37 Other intervertebral M., M.D. 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, 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 M54.6 Pain in thoracic spine M54.5 Low back pain M89.8x8 Other specified disorders of bone, other site Office Visit 09/22/2016 9:30a [facility] Beni aMta INVENTORY AND 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 R73.09 Other abnormal glucose F17.210 Nicotine dependence, cigarettes, 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 E66.01 Morbid (severe) obesity due to excess calories M51.36 Other intervertebral disc degeneration, lumbar region G43.119 Migraine with aura, intractable, without status migrainosus R53.83 Other fatigue R73.09 Other abnormal glucose Office Visit 08/20/2016 11:15a [facility] Beni Mata F17.210 Nicotine dependence, 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 AND 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 cigarettes, 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 E66.01 Morbid (severe) obesity due to excess calories M51.36 Other intervertebral disc degeneration, lumbar region G43.119 Migraine with aura, intractable, without status migrainosus Office Visit 08/11/2016 3:45p [facility] Beni Mata Z00.01 Encounter for INVENTORY AND 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 general adult medical exam w abnormal findings F17.210 Nicotine dependence, cigarettes, 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 E66.01 Morbid (severe) obesity due to excess calories M51.36 Other intervertebral disc degeneration, lumbar region G43.119 Migraine with aura, intractable, without status migrainosus Plan of Treatment 07/22/2018 - Erick Sorto M.D.M51.37 Other intervertebral disc degeneration , lumbosacral regionComments:EXERCISE/HEAT /MESSAGEAVOID HEAVY LIFTING WT LOSSTYLENOL OR MOTRIN PRN DUR IHGDVIJS75.01 Impaired fasting glucoseComments:F /U HGAICFS QAC AN HS PRNLOW GLUCOSE DIETL20.9 Atopic dermatitis, unspecifiedComments:SKIN CARE INSTRUCTIONS LOTION OR BABY OIL 2-3 APPLICATION PER DAYUSE MOISTURIZING SOAPAVOID PROLONGED WATER EXPOSUREAVOID USING HOT WATER IN JAFZHGS65.9 Allergic rhinitis, unspecifiedComments:INCREASE PO FLUID USE ANTIHISTAMINE PRN SECOND HAND SMOKING AVOIDANCE SMOKING SXGZMRENPH13.17 Radiculopathy, lumbosacral regionComments:EXERCISE/HEAT /MESSAGE AVOID HEAVY LIFTING WT LOSS TYLENOL OR MOTRIN PRN DUR RTNWSWJN45.606 Pain in leg, unspecifiedComments:TYLENOL OR MOTRIN PRN EXERCISE/HEAT/MESSAGE DUR XZIJCHNL05.81 Restless legs syndromeComments:REASSURANCE AND COUNCELLINGTYLENOL OR MOTRIN PM PRNM54.6 Pain in thoracic spineComments:EXERCISE/HEAT / MESSAGEAVOID HEAVY LIFTING WT LOSSTYLENOL OR MOTRIN PRN DUR BHLTOKSD30.0 Gastro-esophageal reflux disease with esophagitisComments:AVOID CAFFEINE, ETOH AND SPICY FOODSTUMS OR MYLANTA PRN CALL WITH PROBLEMS OR CONCERNSTOBACCO USE [id number] Functional dyspepsiaComments:AVOID CAFFEINE, ETOH AND SPICY FOODSTUMS OR MYLANTA PRN CALL WITH PROBLEMS OR CONCERNSTOBACCO USE QLNRCXFCAN82.210 Nicotine dependence, cigarettes, 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Comments:SMOKING CESSATION IQOBCCFIQJLG11.119 Migraine with aura, intractable, without status migrainosusComments:COUNCELLING AND REASSURANCE F/U WITH NEUROLOGY PRNR53.83 Other fatigueComments:INCRFEASE PO FLUIDCOUNCELLING AND REASSURANCE RESTG47.00 Insomnia, unspecifiedComments:COUNCELLING AND REASSURANCE RELAXATION TECHNIQUES DISCUSSED COUNSELED RE: STRESSORS IN LIFE TYLENOLPM OR MOTRIN PM PRN DUR TIYNIFKZ05.1 Dysthymic disorderComments:COUNCELLING AND REASSURANCE RELAXATION TECHNIQUES DISCUSSEDCOUNSELED RE: STRESSORS IN LIFEF41.9 Anxiety disorder, unspecifiedComments:COUNCELLING AND REASSURANCE RELAXATION TECHNIQUES DISCUSSEDCOUNSELED RE: STRESSORS IN LIFE AVOID ALLENERGY/HIGH CAFFEINE IRSPSQK61.1 Tinea unguiumComments:NAIL CAREM79.641 Pain in right handComments: TYLENOL OR MOTRIN PRN EXERCISE/HEAT/NWULIIUN06.0 Excessive and frequent menstruation with regular cycleComments:OBSERVEF/U WITH TANK CAR INSPECTOR PRNE66.01 Morbid (severe) obesity due to excess caloriesComments:WT LOSS COUNCELLINGEXERCISEDIET HELUBVYADVOQ55.38 Other bursal cyst, other siteComments:PZKMMRQP49.891 television producer (current) use of opiate analgesicComments:REVIEWED MEDICATIONS AND DIRECTIONS WITH PATIENT DUR KXGZWLBW15.13 Myopia, bilateralComments:USE GLASSES/ CONTACTSF/U WITH OPHTHALMOLOGY
[2018-08-07 16:33] VITALS: BP 129/78
--- NOTE | 2018-08-07 16:40 | UC ---
Lower Extremity/Ankle HPI - HPI Summary HPI Summary: Pt went to the bathroom and her L leg fell asleep and wehn she got up she stumbled and hit her foot. L large toe is bruising. - History of Current Complaint Chief Complaint: UCLowerExtremity Stated Complaint: LEFT FOOT INJURY Time Seen by Provider: 08/07/18 16:19 Hx Obtained From: Patient Hx Last Menstrual Period: TUBAL LIGATION; 2ND WEEK OF THE MONTH Pain Intensity: 8 Pain Scale Used: 0-10 Numeric - Allergies/Home Medications Allergies/Adverse Reactions: Allergies Allergy/AdvReac Type Severity Reaction Status Date / Time tramadol Allergy Tachycardia Verified 08/07/18 16:26 ear drop abx Allergy Flushing Uncoded 08/07/18 16:26 PMH/Surg Hx/FS Hx/Imm Hx - Additional Past Medical History Additional PMH: chronic back pain: morphine/oxy dr. daniel Neurological History: Seizures Other History Of: Negative For: HIV, Hepatitis B, Hepatitis C - Surgical History Surgical History: Yes Surgery Procedure, Year, and Place: Tubal Ligation, 2007, [facility]. C-Sections, 2007 2013, [facility]. Cholecystectomy, 2007, [facility]. T&A, 2004, [facility]. right knee/ meniscus tear - Family History Known Family History: Negative: Hypertension, Diabetes, Blood Disorder - Social History Alcohol Use: None Substance Use Type: Prescribed Smoking Status (MU): Heavy Every Day Tobacco Smoker Type: Cigarettes Amount Used/How Often: 10 CIGS PER WEEK Length of Time of Smoking/Using Tobacco: 7 Years Have You Smoked in the Last Year: Yes When Did the Patient Quit Smoking/Using Tobacco: 12/27/14 - Immunization History Most Recent Influenza Vaccination: 2012 Review of Systems All Other Systems Reviewed And Are Negative: Yes Constitutional: Positive: Negative Skin: Positive: Bruising - L toe Musculoskeletal: Positive: Arthralgia - L toe, Decreased ROM - L toe, Edema - L toe Neurological: Negative: Weakness, Paresthesia, Numbness Physical Exam Triage Information Reviewed: Yes Appearance: Well-Appearing Vital Signs: Initial Vital Signs Temp 98 F 08/07/18 16:27 Pulse 93 08/07/18 16:27 Resp 16 08/07/18 16:27 BP 129/78 08/07/18 16:27 Pulse Ox 100 08/07/18 16:27 Cardiovascular: Positive: Pulses Normal - pedal L foot, Brisk Capillary Refill - at L toe w/ bruising noted. Musculoskeletal: Positive: ROM Limited @ - L large toe, Edema @ - L large toe, Other: - L ankle unremarkable. Neg. tetlin's. Skin: Negative: Rashes Diagnostics - Radiology No standard instances Radiology Interpretation Completed By: Radiologist Summary of Radiographic Findings: IMPRESSION: COMMINUTED, NONDISPLACED FRACTURE INVOLVING THE PROXIMAL PHALANX OF THE LEFT. GREAT TOE. Lower Extremity Course/Dx - Course Course Of Treatment: XRAY showed comminuted fx of L large toe, nondisplaced. caprice taped Large toe and CAM boot applied. Neurovascularly intact. Should f/ u w/ Ortho. Nail bed intact on large toe. 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 On sufficient pain meds from outside provider, no rx today. Pt asking for more oxy, I declined. - Differential Dx/Diagnosis Differential Diagnosis/HQI/PQRI: Contusion, Dislocation, Fracture (Closed), Sprain, Strain Provider Diagnosis: Fracture, toe Discharge - Sign-Out/Discharge Documenting (check all that apply): Patient Departure All imaging exams completed and their final reports reviewed: Yes - Discharge Plan Condition: Good Disposition: HOME Patient Education Materials: Toe Fracture (ED) Referrals: Wiliam Williamson MD [Medical Doctor] - 5 Days Additional Instructions: Please follow up with your main doctor should symptoms persist. You seem to be on a significant amount of pain medication so am unable to give you anything stronger for your injury today. - Billing Disposition and Condition Condition: GOOD Disposition: Home
== END 2018-08-07 17:22 | disposition home or self-care (01) ==
LOC: UCCORT 15:38
DX: S92.415A Nondisplaced fracture of proximal phalanx of left great toe, initial encounter for closed fracture (principal); F17.210 Nicotine dependence, cigarettes, 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; Z88.5 Allergy status to narcotic agent; Z88.8 Allergy status to other drugs, medicaments and biological substances; W22.8XXA Striking against or struck by other objects, initial encounter; Y92.89 Other specified places as the place of occurrence of the external cause
CPT/HCPCS: 99212; G0463

== ENCOUNTER 2018-08-26 12:22 | Emergency (ER) | payer OTHER ==
[2018-08-26 12:56] VITALS: BP 111/62
--- NOTE | 2018-08-26 13:13 | UC ---
Ear Complaint HPI - HPI Summary HPI Summary: 32-year-old female presents with 2 day history of left ear pain. Reports mildly elevated temperature of 100.8 F yesterday. States she feels like there is some swelling to the left side of her face today. Denies headache, ear drainage, nasal congestion, sinus pressure, sore throat, dental pain, dysphagia , chest pain, palpitations, diaphoresis, shortness of breath, abdominal pain, nausea, vomiting, or diarrhea. - History of Current Complaint Chief Complaint: UCEar Stated Complaint: SWOLLEN FACE/LEFT EAR PAIN Time Seen by Provider: 08/26/18 12:59 Hx Last Menstrual Period: ~08/15/18 Pain Intensity: 8 - Allergies/Home Medications Allergies/Adverse Reactions: Allergies Allergy/AdvReac Type Severity Reaction Status Date / Time tramadol Allergy Tachycardia Verified 08/26/18 12:50 ear drop abx Allergy Flushing Uncoded 08/26/18 12:50 Home Medications: Home Medications Lamotrigine XR (NF) [Lamictal XR (NF)] 25 mg PO DAILY 08/26/18 [History Confirmed 08/26/18] Lamotrigine XR (NF) [Lamictal XR (NF)] 100 mg PO DAILY 08/26/18 [History Confirmed 08/26/18] Levetiracetam XR TAB(NF) [Keppra XR TAB(NF)] 1,000 mg PO DAILY 08/26/18 [ History Confirmed 08/26/18] PMH/Surg Hx/FS Hx/Imm Hx - Additional Past Medical History Additional PMH: DDD Previously Healthy: Yes GI/ History: Gastroesophageal Reflux Neurological History: Seizures Other History Of: Negative For: HIV, Hepatitis B, Hepatitis C - Surgical History Surgical History: Yes Surgery Procedure, Year, and Place: Tubal Ligation, 2007, [facility]. C-Sections, 2007 2013, [facility]. Cholecystectomy, 2007, [facility]. T&A, 2004, [facility]. right knee/ meniscus tear - Family History Known Family History: Negative: Hypertension, Diabetes, Blood Disorder - Social History Occupation: Employed Full-time Lives: Alone Alcohol Use: None Substance Use Type: Prescribed Smoking Status (MU): Light Every Day Tobacco Smoker Type: Cigarettes Amount Used/How Often: ~1/6 PPD Length of Time of Smoking/Using Tobacco: Since Age 18 Have You Smoked in the Last Year: Yes When Did the Patient Quit Smoking/Using Tobacco: 12/27/14 - Immunization History Most Recent Influenza Vaccination: 2012 Review of Systems All Other Systems Reviewed And Are Negative: Yes Constitutional: Negative: Fever, Chills Skin: Negative: Rash Eyes: Negative: Drainage, Eye Redness ENT: Positive: Ear Ache. Negative: Dental Pain, Sore Throat, Nasal Discharge, Sinus Congestion, Sinus Pain/Tenderness Respiratory: Negative: Shortness Of Breath, Cough Cardiovascular: Negative: Palpitations, Chest Pain Gastrointestinal: Negative: Abdominal Pain, Vomiting, Diarrhea, Nausea Genitourinary: Positive: Negative Musculoskeletal: Positive: Negative Neurological: Positive: Negative Is Patient Immunocompromised?: No Physical Exam - Summary Physical Exam Summary: GENERAL APPEARANCE: Well developed, obese, alert and cooperative, and appears to be in no acute distress. HEAD: Atraumatic. Normocephalic. No facial swelling noted. EYES: Conjunctiva clear. No drainage. Vision is grossly intact. EARS: External auditory canals clear. Right TM opaque with good cone of light. Left TM erythematous. Hearing grossly intact. NOSE: No nasal discharge. THROAT: Pharynx normal. Tonsils surgically absent. Uvula midline. Oral cavity normal. Teeth and gingiva in good general condition. NECK: Neck supple, non-tender without lymphadenopathy. CARDIAC: Normal S1 and S2. No S3, S4 or murmurs. Rhythm is regular. There is no peripheral edema, cyanosis or pallor. Extremities are warm and well perfused. Capillary refill is less than 2 seconds. Peripheral pulses intact. LUNGS: Clear to auscultation without rales, rhonchi, wheezing or diminished breath sounds. ABDOMEN: Positive bowel sounds. Soft, nondistended, nontender. No guarding or rebound. No masses or hepatosplenomegally. MUSKULOSKELETAL: ROM intact to all extremities. No joint erythema or tenderness. Normal muscular development. Normal gait. SKIN: Skin normal color, texture and turgor with no lesions or eruptions. Vital Signs: Initial Vital Signs Temp 98 F 08/26/18 12:49 Pulse 80 08/26/18 12:49 Resp 20 08/26/18 12:49 BP 111/62 08/26/18 12:49 Pulse Ox 98 08/26/18 12:49 Ear Complaint Course/Dx - Course Course Of Treatment: 32-year-old female presents with 2 day history of left ear pain. Reports mildly elevated temperature of 100.8 F yesterday. States she feels like there is some swelling to the left side of her face today. Denies headache, ear drainage, nasal congestion, sinus pressure, sore throat, dental pain, dysphagia, chest pain, palpitations, diaphoresis, shortness of breath, abdominal pain, nausea, vomiting, or diarrhea. Afebrile. Vital signs stable. Exam reveals an adult female in no acute distress with mild erythema of the left TM an otherwise unremarkable exam. We will treat her for an acute left otitis medial with a course of amoxicillin. Patient is requesting liquid amoxicillin as she has felt that the capsules of caused her upset stomach in the past. Will put her on amoxicillin 400 mg/5 mL total of 10 mL twice a day 10 days. She is to follow-up with her primary care provider if no improvement in 5 days. Anticipatory guidance and warning symptoms were reviewed with the patient. Verbalizes understanding and agrees with plan of care. - Differential Dx/Diagnosis Differential Diagnosis/HQI/PQRI: Otitis Externa, Otitis Media, Pharyngitis, URI , Other - sinusitis, dental infection Provider Diagnosis: Left otitis media Discharge - Sign-Out/Discharge Documenting (check all that apply): Patient Departure All imaging exams completed and their final reports reviewed: No Studies - Discharge Plan Condition: Stable Disposition: HOME Prescriptions: Amoxicillin PO (*) [Amoxicillin 400 MG/5 ML SUSP*] 10 ml PO BID 10 Days #1 bottle Patient Education Materials: Ear Infection (ED) Referrals: Erick Sorto MD [Primary Care Provider] - 5 Days (If no improvement in symptoms) Additional Instructions: Take amoxicillin 10 ml twice a day for 10 days for the ear infection of your left ear. Be sure to complete the full course even if feeling better. Use over the counter acetaminophen (Tylenol) or ibuprofen (Advil, Motrin) according to directions as needed for pain. Follow up with your primary care provider in 5 days if no improvement in symptoms. Seek immediate medical attention if you have fever greater than 100.5 F despite taking acetaminophen or ibuprofen, worsening pain, drainage or bleeding from the ear, you are unable to swallow, are drooling, unable to open or close your mouth, or any worsening of symptoms. - Billing Disposition and Condition Condition: STABLE Disposition: Home
== END 2018-08-26 13:17 | disposition home or self-care (01) ==
LOC: UCCORT 12:22
DX: H66.92 Otitis media, unspecified, left ear (principal); F17.210 Nicotine dependence, cigarettes, 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; Z88.1 Allergy status to other antibiotic agents; Z88.5 Allergy status to narcotic agent
CPT/HCPCS: 99212; G0463